=== PATIENT | male | born 1965 | race Caucasian/White ===

== ENCOUNTER 2020-09-24 19:53 | Inpatient (IN) | payer BC ==
[~2020-09-24] VITALS: Ht 182.9 cm; Wt 93.2 kg
[~2020-09-24 19:53] MED LIST: ALTACE5 MG PO; CRESTOR 10MG10 MG PO
[2020-09-24 20:48] LABS: COLLECTION METHOD CLEAN CATCH
[2020-09-24 20:54] LABS: BASO % 0.4 % (0.0-2.0); EOS # 0.1 (0.0-0.7); EOS % 0.8 % (0-4.0); GRAN # 5.7 (1.4-6.5); GRAN % 73.6 % (42.2-75.2); HEMOGLOBIN 13.9 g/dl (13.5-18.0); LYMPH # 1.2 (1.2-3.4); LYMPH % 15.3 % (20.0-51.0); MEAN CELL VOLUME 93 fl (80.0-100.0); MEAN CORPUSCULAR HEMOGLOBIN 32 pg (27.0-31.0); MEAN CORPUSCULAR HGB CONC 34 g/dl (33.0-37.0); MEAN PLATELET VOLUME 9.6 fl (7.4-10.4); MONO # 0.7 (0.1-0.6); MONO % 9.6 % (1.7-9.3); PLATELET COUNT 302 K/mm3 (130-400); REDCELL DISTRIBUTION WIDTH-CV 12.4 % (11.5-14.5)
[2020-09-24 20:58] LABS: MUCOUS Present /lpf; PH 7 (5-8); SQUAMOUS EPITHELIAL 0-2 /hpf; URINE APPEARANCE Clear; URINE BACTERIA None Seen /hpf; URINE BILIRUBIN Negative (NEGATIVE); URINE BLOOD Negative (NEGATIVE); URINE COLOR Yellow; URINE GLUCOSE Negative (NEGATIVE); URINE KETONE Trace (NEGATIVE); URINE LEUKOCYTE ESTERASE Negative (NEGATIVE); URINE NITRATE Negative (NEGATIVE); URINE PROTEIN(semi-quant) Negative (NEGATIVE); URINE RBC 0-2 /hpf; URINE UROBILINOGEN Negative (NEGATIVE)
[2020-09-24 21:04] LABS: ALBUMIN 4.9 gm/dL (3.5-5.0); BILIRUBIN,TOTAL 0.9 mg/dL (0.0-1.0); C-REACTIVE PROTEIN 5.8 mg/dL (0.0-0.9); CALCIUM 9.7 mg/dL (8.4-10.2); CREATININE, serum 1.05 (0.66-1.25); POTASSIUM 3.3 mmol/L (3.4-5.0); TOTAL PROTEIN 8.1 gm/dL (6.4-8.2)
--- NOTE | 2020-09-24 23:30 | NUR ---
Patient up to room 350 via stretcher. Oriented to room and call light. Patient is alert and oriented but appears medicated and drowsy. Admission and med rec complete. Patient is on 2 L of oxygen via nasal cannula. Fluids infusing to right AC. Will be kept NPO for possible surgery tomorrow. Call light in reach.
[2020-09-24] MEDS ORDERED: CELEXA 20MG20 MG/TAB PO (23:47)
[2020-09-24 23:56] VITALS: BP 119/62; PULSE 87; TEMP 100.1
[2020-09-25] VITALS (14 sets, daily range): BP systolic 101–118; BP diastolic 56–64; PULSE 61–82; TEMP 98.1–100.4
[2020-09-25] MEDS ORDERED: WELLBUTRIN XL300 M1 PO (00:15)
[2020-09-25] MEDS ORDERED: DIOVAN/HCT 12.51 TA1 PO (00:17)
--- NOTE | 2020-09-25 05:45 | NUR ---
PAtient called and stated his pain was getting bad again. 0.25 mg of dilaudid given.
--- NOTE | 2020-09-25 11:49 | NUR ---
Radio Division Officer met with patient and patient's , Genny (ph#[phone]) to discuss discharge planning. Patient lives in [place] with his and sees Dr. Beltran for primary care. Patient obtains medications from [facility] with no difficulties. Patient does not use any DME and is independent with [facility]. Patient advised he believes he has completed DPOA-HC documents with [employer] attorneys, however has not obtained a finalized copy yet. Patient plans to return home upon discharge. Discharge Plan: Home
--- NOTE | 2020-09-25 14:35 | NUR ---
Patient up from OR. Alert and oriented x 3. Lap x 2 with bandaids are CDI. Lap above umbilicus with edges well approximated. SCDS to BLE. Postop fluids infusing per orders. Post Op VSS. Spouse at bedside. Denies pain or further needs at this time.
--- NOTE | 2020-09-25 14:46 | NUR ---
First visit from the alternative medicine practitioner. No needs right now.
--- NOTE | 2020-09-25 18:18 | NUR ---
Patient resting in bed eating dinner at this time, at bedside. Patient is alert and oriented, answers questions appropriately. Post op checks complete, IVF continue per order. Patient denies needs at this time, call light within reach.
--- NOTE | 2020-09-25 20:45 | NUR ---
Pt. sitting up in bed at this time. Pt. is a&OX3, assessment complete. IV to rt. AC patent, IV fluids infusing per orders. Pt. reports pain at a 5 on pain scale. Giving pain meds per orders. Pt. denies further needs, call light within reach.
[2020-09-26 04:41] VITALS: BP 104/57; PULSE 68; TEMP 98.6
[2020-09-26 06:23] LABS: MEAN CELL VOLUME 97 fl (80.0-100.0); MEAN CORPUSCULAR HGB CONC 32 g/dl (33.0-37.0); MEAN PLATELET VOLUME 9.8 fl (7.4-10.4); PLATELET COUNT 237 K/mm3 (130-400); REDCELL DISTRIBUTION WIDTH-CV 12.9 % (11.5-14.5)
[2020-09-26 06:31] LABS: HEMATOCRIT 33.9 % (42.0-52.0); MEAN CORPUSCULAR HEMOGLOBIN 31 pg (27.0-31.0)
[2020-09-26 06:33] LABS: HEMOGLOBIN 10.9 g/dl (13.5-18.0)
[2020-09-26 06:45] LABS: CREATININE, serum 0.85 (0.66-1.25); POTASSIUM 3.1 mmol/L (3.4-5.0)
[2020-09-26 07:21] LABS: BAND 5 % (0-10); LYMPHOCYTE 2 % (20.0-51.0); NEUTROPHILS 86 % (42.0-75.2)
[2020-09-26 07:22] LABS: HYPOCHROMIA 2+; PLATELET ESTIMATE NORMAL (NORMAL)
[2020-09-26 07:26] VITALS: BP 90/42; PULSE 59; TEMP 98.7
--- NOTE | 2020-09-26 10:46 | NUR ---
Initial visit; Patient states he is doing well and thanked Chef [employer] for looking in on him.
[2020-09-26 12:00] VITALS: BP 108/59; PULSE 57; TEMP 97.8
[2020-09-26 15:17] VITALS: BP 94/53; PULSE 68; TEMP 98.8
--- NOTE | 2020-09-26 17:07 | NUR ---
Patient resting in bed at this time. Patient is alert and oriented, independent in room. Patient has c/o pain in abdomen once today, incisions remain CDI. Patient showered independently today. Denies nausea, no further needs at this time, call light within reach.
[2020-09-26 20:44] VITALS: BP 112/60; PULSE 74; TEMP 98.4
--- NOTE | 2020-09-26 23:59 | NUR ---
Patient assessed around 2109. Alert and oriented, and able to make needs known. Reported level 5 pain to abdomne, and was given PRN Hosmer for pain as requested. Peripheral INT to right AC. Denies SOB and dyspnea. LS CTA. Respirations even and unlabored. HRR. Capillary refill less than 3 seconds. Non-tenting skin turgor. BSAx4. 3 lap sites to abdomen with bandaids on. No redness, warmth, swelling, or drainage noted to sites. No edema. Voices no questions, needs, or concerns at this time. Resting in bed with call light within reach.
[2020-09-27 00:10] VITALS: BP 126/68; PULSE 64; TEMP 98.7
[2020-09-27 03:57] VITALS: BP 137/47; PULSE 64; TEMP 98.1
[2020-09-27 04:16] VITALS: BP 136/72; PULSE 61; TEMP 98.1
--- NOTE | 2020-09-27 05:45 | NUR ---
Patient has been resting in bed with call light within reach. Voices no questions, needs, or concerns at this time. Continues on IV antibiotics per orders. Denies having pain and discomfort at this time.
[2020-09-27 06:46] LABS: BASO % 0.1 % (0.0-2.0); EOS # 0.1 (0.0-0.7); EOS % 0.8 % (0-4.0); GRAN # 6.9 (1.4-6.5); GRAN % 82.7 % (42.2-75.2); HEMOGLOBIN 10.7 g/dl (13.5-18.0); LYMPH # 0.8 (1.2-3.4); LYMPH % 9.4 % (20.0-51.0); MEAN CELL VOLUME 97 fl (80.0-100.0); MEAN CORPUSCULAR HEMOGLOBIN 31 pg (27.0-31.0); MEAN CORPUSCULAR HGB CONC 32 g/dl (33.0-37.0); MONO # 0.5 (0.1-0.6); MONO % 6.4 % (1.7-9.3); PLATELET COUNT 260 K/mm3 (130-400); RED BLOOD COUNT 3.47 M/mm3 (4.20-5.60)
[2020-09-27 06:52] LABS: CALCIUM 8.3 mg/dL (8.4-10.2); CREATININE, serum 0.95 (0.66-1.25); HEMATOCRIT 33.5 % (42.0-52.0); POTASSIUM 3.4 mmol/L (3.4-5.0)
[2020-09-27 08:35] VITALS: BP 126/73; PULSE 71; TEMP 98.4
[2020-09-27 11:37] VITALS: BP 120/75; PULSE 57; TEMP 98.6
--- NOTE | 2020-09-27 12:24 | NUR ---
Patient alert and oriented, answers questions appropriately. See assessment. Abdomen distended, non tender. Bowel sounds hypoactive x4 quads. +Flatus. No bowel movement. Lap sites to abdomen with edges well approximated, no redness or drainage noted. Post op exercises reviewed with patient. No c/o at this time.
[2020-09-27 16:57] VITALS: BP 147/82; PULSE 68; TEMP 98.6
[2020-09-27] MEDS ORDERED: AMOXICILLIN 8751 TAB PO (17:35)
[2020-09-27] MEDS ORDERED: NORCO 325 MG-51 TAB PO (17:36)
[2020-09-27] MEDS ORDERED: FLAGYL500 MG PO (17:36)
--- NOTE | 2020-09-27 18:49 | NUR ---
Discharge instructions reviewed with patient and spouse, verbalized understanding. Discharged ambulatory to auto/home with spouse at 1840.
== END 2020-09-27 18:40 | disposition home or self-care (01) | DRG 340 ==
LOC: COL.ER 19:53 → SURG 22:15
PROVIDERS: Nurse Practitioner Primary Care; ADMIT Surgery
PROC: 0DTJ4ZZ Resection of Appendix, Percutaneous Endoscopic Approach (ICD-10-PCS; principal; 2020-09-25 12:30)
DX: K35.32 Acute appendicitis with perforation, localized peritonitis, and gangrene, without abscess (principal); E78.5 Hyperlipidemia, unspecified; I10 Essential (primary) hypertension
CPT/HCPCS: A9284; G0378; J0690; J1100; J1170; J1650; J1885; J2270; J2405; J2543; J2550; J2704; J3010; J7030; Q9967